=== PATIENT | male | born 1935 | race Caucasian/White ===

== ENCOUNTER 2016-08-26 13:10 | Emergency (ER) | payer OTHER ==
[~2016-08-26] VITALS: Ht 167.6 cm; Wt 81.8 kg
[~2016-08-26 13:10] MED LIST: ERYTHROMYC1 APPLICAT BOTH EYES; GEODON40 MG PO; LEVAQUIN500 MG PO; LIPITOR40 MG PO; LISINOPRIL10 MG PO
[2016-08-26 15:19] LABS: EOSINOPHIL (%) 0.9 % (0-5); EOSINOPHIL COUNT 0.1 K/uL (0-0.3); HEMATOCRIT 40.6 % (38.0-50.0); IMMATURE GRANULOCYTE (%) 0.2 % (0.0-0.7); IMMATURE GRANULOCYTE COUNT 0.1 K/uL; LYMPHOCYTE COUNT 0.7 K/uL (1.0-2.8); MCH 32.7 PG (29.0-34.0); MCHC 33.7 G/DL (30.0-36.0); MCV 96.9 FL (86-99); MEAN PLAT.VOLUME 11.8 uM^3 (9.0-12.4); MONOCYTE (%) 6.2 % (3-12); MONOCYTE COUNT 0.3 K/uL (0-0.8); NEUTROPHIL (%) 79.6 % (45-76); NEUTROPHIL COUNT 4.4 K/uL (1.8-6.4); PLATELET COUNT 126 K/uL (156-360); RBC DIS.WIDTH-CV 12.9 % (11.8-14.6); RBC DIS.WIDTH-SD 44.5 % (39-53); RED BLOOD COUNT 4.19 M/uL (4.00-5.50); WHITE BLOOD COUNT 5.5 K/uL (4.1-10.2)
[2016-08-26 15:37] LABS: CHLORIDE 106 mEq/L (99-109); POTASSIUM 3.9 mEq/L (3.7-5.4); SODIUM 139 mEq/L (136-147)
[2016-08-26 15:39] LABS: GLUCOSE 135 mg/dL (70-99)
[2016-08-26 15:41] LABS: ANION GAP 11 MEQ/L (2-14); TOTAL BILIRUBIN 0.5 mg/dL (0.0-1.0); TROP-I INTERPRETATION NEGATIVE; TROPONIN-I 0.03 ng/mL (0.0-0.30)
[2016-08-26 15:43] LABS: ALKALINE PHOSPHATASE 80 IU/L (3-129); GFR ESTIMATE (CALCULATED) 48 mL/min/
[2016-08-26 15:44] LABS: UREA NITROGEN (BUN) 35 mg/dL (9-23)
[2016-08-26 17:22] LABS: D-DIMER ELISA 0.68 mg/L FEU (< 0.57)
[2016-08-26] MEDS ORDERED: MEDROL DOSEPAK4 MG PO (21:45)
[2016-08-26] MEDS ORDERED: PROAIR HFA8.5 GM IH (21:45)
[2016-08-26] MEDS ORDERED: ZITHROMAX500 MG PO (21:45)
[2016-08-26] MEDS ORDERED: ZYRTEC10 M3 PO (21:45)
[2016-08-26 22:13] VITALS: BP 124/87
== END 2016-08-26 22:49 | disposition home or self-care (01) ==
LOC: EME → EDBD 13:10 → EME 13:10
PROVIDERS: Emergency Medicine
DX: J44.0 Chronic obstructive pulmonary disease with (acute) lower respiratory infection (principal); J20.9 Acute bronchitis, unspecified; J44.1 Chronic obstructive pulmonary disease with (acute) exacerbation; I10 Essential (primary) hypertension; I25.2 Old myocardial infarction; K21.9 Gastro-esophageal reflux disease without esophagitis; Z87.442 Personal history of urinary calculi; Z95.1 Presence of aortocoronary bypass graft; Z87.891 Personal history of nicotine dependence
CPT/HCPCS: 71010; 71275; 80053; 83880; 84484; 85025; 85379; 94640; 99281; 99284; J1100; J1940; J7040; J7644

== ENCOUNTER 2016-12-12 16:30 | Inpatient (IN) | payer OTHER ==
[~2016-12-12] VITALS: Ht 172.7 cm; Wt 101.1 kg
[~2016-12-12 16:30] MED LIST changes: +MEDROL DOSEPAK4 MG PO; +PROAIR HFA8.5 GM IH; +ZITHROMAX500 MG PO; +ZYRTEC10 M3 PO
[2016-12-12 17:03] LABS: EOSINOPHIL (%) 1.4 % (0-5); EOSINOPHIL COUNT 0.1 K/uL (0-0.3); HEMATOCRIT 42.6 % (38.0-50.0); IMMATURE GRANULOCYTE (%) 0.4 % (0.0-0.7); INSTRUMENT ABS NEUTROPHIL CT 5.7 K/uL; LYMPHOCYTE COUNT 1.2 K/uL (1.0-2.8); MCH 32.1 PG (29.0-34.0); MCHC 33.6 G/DL (30.0-36.0); MCV 95.7 FL (86-99); MEAN PLAT.VOLUME 11.7 uM^3 (9.0-12.4); MONOCYTE (%) 11.1 % (3-12); MONOCYTE COUNT 0.9 K/uL (0-0.8); NEUTROPHIL (%) 71.4 % (45-76); NEUTROPHIL COUNT 5.7 K/uL (1.8-6.4); PLATELET COUNT 169 K/uL (156-360); RBC DIS.WIDTH-CV 13.2 % (11.8-14.6); RBC DIS.WIDTH-SD 46.6 % (39-53); RED BLOOD COUNT 4.45 M/uL (4.00-5.50); WHITE BLOOD COUNT 7.9 K/uL (4.1-10.2)
[2016-12-12 17:16] LABS: CHLORIDE 108 mEq/L (99-109); MAGNESIUM 2.1 mg/dL (1.3-2.7); POTASSIUM 4.6 mEq/L (3.7-5.4); SODIUM 139 mEq/L (136-147)
[2016-12-12 17:18] LABS: GLUCOSE 92 mg/dL (70-99)
[2016-12-12 17:19] LABS: ANION GAP 10 MEQ/L (2-14)
[2016-12-12 17:21] LABS: GFR ESTIMATE (CALCULATED) 41 mL/min/; PROTHROMBIN TIME 10.6 (9.2-11.2); PTT 29.9 (25-32)
[2016-12-12 17:22] LABS: UREA NITROGEN (BUN) 30 mg/dL (9-23)
[2016-12-12] MEDS ORDERED: UNABLE TO OBTAIN (17:24)
[2016-12-12 17:27] LABS: TROP-I INTERPRETATION NEGATIVE; TROPONIN-I 0.02 ng/mL (0.0-0.30)
[2016-12-12 17:46] LABS: ADD MIUA? YES; BILIRUBIN NEGATIVE; BLOOD NEGATIVE; GLUCOSE (STRIP) NEGATIVE; KETONES NEGATIVE; LEUKOCYTES TRACE; NITRITE NEGATIVE; PROTEIN (STRIP) 30; SPECIFIC GRAVITY 1.024 (1.000-1.030)
[2016-12-12 17:47] LABS: COLOR DK YELLOW ((YELLOW))
[2016-12-12 18:51] LABS: RED BLOOD CELLS 0-5 /HPF (0-5)
[2016-12-12 18:52] LABS: BACTERIA 2+ /HPF; CASTS PRESENT /LPF; CRYSTALS NONE SEEN; EPITHELIAL CELLS RARE /HPF; MUCUS 3+ /LPF; UCUL ADDED? YES
[2016-12-12] MEDS ORDERED: PRINIVIL5 MG PO (20:44)
[2016-12-12] MEDS ORDERED: LO-DOSE ASPIRIN81 M2 PO (20:45)
[2016-12-12] MEDS ORDERED: BUSPAR5 MG PO (20:45)
[2016-12-12] MEDS ORDERED: LEXAPRO10 MG PO (20:45)
[2016-12-12] MEDS ORDERED: NAMENDA10 MG PO (20:45)
[2016-12-12] MEDS ORDERED: OXYBUTYNIN CHLO10 MG PO (20:45)
[2016-12-12 22:13] VITALS: BP 143/85
[2016-12-12 23:23] VITALS: BP 138/66
[2016-12-13] VITALS (8 sets, daily range): BP systolic 136–178; BP diastolic 74–91
[2016-12-13 07:41] LABS: EOSINOPHIL (%) 2.2 % (0-5); EOSINOPHIL COUNT 0.1 K/uL (0-0.3); HEMATOCRIT 43.1 % (38.0-50.0); IMMATURE GRANULOCYTE (%) 0.5 % (0.0-0.7); INSTRUMENT ABS NEUTROPHIL CT 3.8 K/uL; LYMPHOCYTE COUNT 1.3 K/uL (1.0-2.8); MCHC 32.7 G/DL (30.0-36.0); MCV 97.7 FL (86-99); MEAN PLAT.VOLUME 11.7 uM^3 (9.0-12.4); MONOCYTE COUNT 0.7 K/uL (0-0.8); NEUTROPHIL (%) 63.4 % (45-76); NEUTROPHIL COUNT 3.8 K/uL (1.8-6.4); PLATELET COUNT 146 K/uL (156-360); RBC DIS.WIDTH-CV 13.2 % (11.8-14.6); RBC DIS.WIDTH-SD 47.6 % (39-53); RED BLOOD COUNT 4.41 M/uL (4.00-5.50); WHITE BLOOD COUNT 5.9 K/uL (4.1-10.2)
[2016-12-13 08:36] LABS: ANION GAP 10 MEQ/L (2-14); CHLORIDE 107 MEQ/L (99-109); GFR ESTIMATE (CALCULATED) 48 mL/min/; GLUCOSE 84 mg/dL (70-99); POTASSIUM 4.6 MEQ/L (3.7-5.4); SAMPLE HEMOLYSIS CHECK 0; SAMPLE ICTERIC CHECK 0; SAMPLE LIPEMIA CHECK 0; SODIUM 143 MEQ/L (136-147); UREA NITROGEN (BUN) 25 mg/dL (9-23)
[2016-12-14 04:30] VITALS: BP 168/80
[2016-12-14 07:11] LABS: EOSINOPHIL (%) 2.8 % (0-5); EOSINOPHIL COUNT 0.2 K/uL (0-0.3); HEMATOCRIT 42.2 % (38.0-50.0); IMMATURE GRANULOCYTE (%) 0.4 % (0.0-0.7); INSTRUMENT ABS NEUTROPHIL CT 3.5 K/uL; LYMPHOCYTE COUNT 0.9 K/uL (1.0-2.8); MCH 32.9 PG (29.0-34.0); MCHC 33.6 G/DL (30.0-36.0); MCV 97.7 FL (86-99); MEAN PLAT.VOLUME 11.9 uM^3 (9.0-12.4); MONOCYTE COUNT 0.7 K/uL (0-0.8); NEUTROPHIL (%) 65.7 % (45-76); NEUTROPHIL COUNT 3.5 K/uL (1.8-6.4); PLATELET COUNT 129 K/uL (156-360); RBC DIS.WIDTH-CV 13.2 % (11.8-14.6); RBC DIS.WIDTH-SD 46.9 % (39-53); RED BLOOD COUNT 4.32 M/uL (4.00-5.50); WHITE BLOOD COUNT 5.3 K/uL (4.1-10.2)
[2016-12-14 08:16] VITALS: BP 170/79
[2016-12-14 11:37] VITALS: BP 138/81
[2016-12-14] MEDS ORDERED: BUSPAR10 MG PO (12:39)
[2016-12-14] MEDS ORDERED: GEODON40 MG PO (12:39)
== END 2016-12-14 14:17 | disposition home or self-care (01) | DRG 690 ==
LOC: EME → EDBD 16:30 → EDOF 20:26 → 3EAST 21:31
PROVIDERS: Emergency Medicine; Internal Medicine; Physician Assistant Medical
DX: N30.00 Acute cystitis without hematuria (principal); J44.9 Chronic obstructive pulmonary disease, unspecified; R41.0 Disorientation, unspecified; N17.9 Acute kidney failure, unspecified; F02.81 Dementia in other diseases classified elsewhere, unspecified severity, with behavioral disturbance; I25.5 Ischemic cardiomyopathy; I50.22 Chronic systolic (congestive) heart failure; N18.3 Chronic kidney disease, stage 3 (moderate); I10 Essential (primary) hypertension; I12.9 Hypertensive chronic kidney disease with stage 1 through stage 4 chronic kidney disease, or unspecified chronic kidney disease; I25.10 Atherosclerotic heart disease of native coronary artery without angina pectoris; K21.9 Gastro-esophageal reflux disease without esophagitis; R00.0 Tachycardia, unspecified; G30.9 Alzheimer's disease, unspecified; E78.5 Hyperlipidemia, unspecified; I73.9 Peripheral vascular disease, unspecified; F32.9 Major depressive disorder, single episode, unspecified; I25.2 Old myocardial infarction; Z87.891 Personal history of nicotine dependence; Z91.83 Wandering in diseases classified elsewhere; Z95.5 Presence of coronary angioplasty implant and graft
CPT/HCPCS: 70450; 71010; 80048; 81003; 83605; 83735; 84484; 85025; 85610; 85730; 87040; 87086; 93005; 99202; 99281; 99285; J0360; J0696; J1644; J7050; J7120

== ENCOUNTER 2017-01-04 17:32 | Emergency (ER) | payer OTHER ==
[~2017-01-04] VITALS: Ht 170.2 cm; Wt 104.6 kg
[~2017-01-04 17:32] MED LIST changes: +BUSPAR10 MG PO; +BUSPAR5 MG PO; +LEXAPRO10 MG PO; +LO-DOSE ASPIRIN81 M2 PO; +NAMENDA10 MG PO; +OXYBUTYNIN CHLO10 MG PO; +PRINIVIL5 MG PO; +UNABLE TO OBTAIN
[2017-01-04 19:59] LABS: HEMATOCRIT 42.7 % (38.0-50.0); MCH 32.7 PG (29.0-34.0); MCHC 33.3 G/DL (30.0-36.0); MCV 98.4 FL (86-99); MEAN PLAT.VOLUME 11.1 uM^3 (9.0-12.4); PLATELET COUNT 188 K/uL (156-360); RBC DIS.WIDTH-CV 13.6 % (11.8-14.6); RBC DIS.WIDTH-SD 49.1 % (39-53); RED BLOOD COUNT 4.34 M/uL (4.00-5.50); WHITE BLOOD COUNT 8.1 K/uL (4.1-10.2)
[2017-01-04 20:07] LABS: CHLORIDE 105 mEq/L (99-109); POTASSIUM 4.8 mEq/L (3.7-5.4); SODIUM 136 mEq/L (136-147)
[2017-01-04 20:09] LABS: GLUCOSE 106 mg/dL (70-99)
[2017-01-04 20:10] LABS: ANION GAP 7 MEQ/L (2-14)
[2017-01-04 20:12] LABS: SERUM ETHYL ALCOHOL < 10 mg/dL
[2017-01-04 20:13] LABS: GFR ESTIMATE (CALCULATED) 39 mL/min/; UREA NITROGEN (BUN) 28 mg/dL (9-23)
[2017-01-04 20:40] LABS: ADD MIUA? YES; BILIRUBIN NEGATIVE; BLOOD NEGATIVE; COLOR YELLOW ((YELLOW)); GLUCOSE (STRIP) NEGATIVE; KETONES 5; LEUKOCYTES SMALL; NITRITE NEGATIVE; PROTEIN (STRIP) 30
[2017-01-04 21:00] LABS: BACTERIA RARE /HPF; EPITHELIAL CELLS RARE /HPF; HYALINE CASTS 0-5 /LPF; MUCUS TRACE /LPF; RED BLOOD CELLS 0-5 /HPF (0-5); UCUL ADDED? NO
[2017-01-04 21:32] VITALS: BP 135/78
== END 2017-01-04 21:34 | disposition home or self-care (01) ==
LOC: EME 17:32
PROVIDERS: Emergency Medicine
DX: F03.90 Unspecified dementia, unspecified severity, without behavioral disturbance, psychotic disturbance, mood disturbance, and anxiety (principal); I11.0 Hypertensive heart disease with heart failure; I50.9 Heart failure, unspecified; I25.2 Old myocardial infarction; Z87.442 Personal history of urinary calculi; F17.200 Nicotine dependence, unspecified, uncomplicated; Z95.1 Presence of aortocoronary bypass graft
CPT/HCPCS: 70450; 80048; 81003; 85027; 87086; 99281; 99284; G0480